=== PATIENT | male | born 1990 | race Caucasian/White ===

== ENCOUNTER 2016-06-17 10:15 | Emergency (ER) | payer MEDICAID ==
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
[2016-06-17 11:49] VITALS: BP 126/83; PULSE 78; RESP 19; TEMP 98.4; O2SAT 96
== END 2016-06-17 11:44 | disposition home or self-care (01) ==
DX: S16.1XXA Strain of muscle, fascia and tendon at neck level, initial encounter (principal); S40.011A Contusion of right shoulder, initial encounter; F17.200 Nicotine dependence, unspecified, uncomplicated; V29.9XXA Motorcycle rider (driver) (passenger) injured in unspecified traffic accident, initial encounter; Y92.410 Unspecified street and highway as the place of occurrence of the external cause; Y93.55 Activity, bike riding

== ENCOUNTER 2016-06-22 09:49 | Inpatient (IN) | payer MEDICAID ==
[2016-06-22 10:28] LABS: % IMMATURE GRANULYOCYTES 0.8 % (0.0-1.1); ABSOLUTE IMMATURE GRANULOCYTES 0.05 10^3/uL (0.00-0.10); ADD DIFF? NO; ADD MORPH? NO; ADD SCAN? NO; ATYPICAL LYMPHOCYTE FLAG 20 (0-99); FRAGMENT RBC FLAG 0 (0-99); HEMATOCRIT 48.8 % (40.0-51.0); HEMOGLOBIN 17.2 g/dL (13.7-17.5); LEFT SHIFT FLG 0 (0-99); LIPEMIA HEMOLYSIS FLAG 90 (0-99); MEAN CELL HEMOGLOBIN 31.3 pg (27.9-34.1); MEAN CELL HEMOGLOBIN CONCENTR. 35.2 g/dL (32.4-36.7); MEAN CELL VOLUME 88.7 fL (81.5-99.8); PLATELET CLUMPS FLAG 0 (0-99); PLATELET COUNT 298 10^3/uL (150-400); RED CELL DISTRIBUTION WIDTH 12.2 % (11.5-15.2)
[2016-06-22 10:52] LABS: ANION GAP 14 mEq/L (8-16); CALCIUM 10.3 mg/dL (8.5-10.4); CARBON DIOXIDE 21 mEq/l (22-31); CHLORIDE 106 mEq/L (97-110); CREATININE 0.7 mg/dL (0.7-1.3); ETHANOL SERUM < 10 mg/dL (0-10); GLOMERULAR FILTRATION RATE > 60; GLUCOSE 96 mg/dL (70-100); POTASSIUM 4.5 mEq/L (3.5-5.2); SALICYLATE < 1.0 mg/dL (2.0-20.0); SODIUM 141 mEq/L (134-144)
[2016-06-22] MEDS ORDERED: HYDROCODONE/APAP 5/325 TAB PO ONE ×2 (11:14→20:41)
[2016-06-22] MEDS ORDERED: IBUPROFEN 600 MG TAB PO ONE ×3 (11:14→20:41)
--- NOTE | 2016-06-22 11:28 | EDPHY ---
H & P Stated Complaint: court ordered M1 - Personal History Current Tetanus/Diphtheria Vaccine: Unsure Current Tetanus Diphtheria and Acellular Pertussis (TDAP): Unsure - Medical/Surgical History Hx Asthma: No Hx Chronic Respiratory Disease: No Hx Diabetes: No Hx Cardiac Disease: No Hx Renal Disease: No Hx Cirrhosis: No Hx Alcoholism: No Hx HIV/AIDS: No Hx Splenectomy or Spleen Trauma: No Other PMH: PMH: bipolar, schizo affective, acid reflux. PSH: wisdom teeth removed - Social History Smoking Status: Current every day smoker HPI/ROS: Chief complaint: Court ordered mental health hold History of present illness: This is a 26-year-old male who presents to the emergency department on a court ordered mental health hold. According to the hold his mother asked for the hold to be placed as she felt he was gravely disabled and a danger to himself and others. On my evaluation patient states he knows his mother placed him on a hold but does not understand why. He does not believe he needs it at this time. He denies suicidal ideation. He denies homicidal ideation. He denies illness. He recently injured his clavicle and was evaluated in this emergency room and feels he is recovering well from it, although he still occasionally has pain at the site of injury. He is requesting some pain medication.. Review of systems: A 10 point review of systems was obtained and other than described above was negative (Pal Chand) - Physical Exam Exam: General Appearance: Alert, nontoxic. Eyes: Pupils equal and round no pallor or injection. ENT, Mouth: Mucous membranes moist. Respiratory: There are no retractions, lungs are clear to auscultation. Cardiovascular: Regular rate and rhythm. Gastrointestinal: Abdomen is soft and nontender, no masses, bowel sounds normal. Neurological: Alert. Strength and sensation intact and symmetrical. Ambulating well. Skin: Warm and dry, no rashes. Musculoskeletal: Head is normocephalic, atraumatic. Neck is supple nontender. Spine is nontender to palpation along its entire length. Right clavicle is nontender. Chest wall intact palpation. Extremities are symmetrical, full range of motion. Psychiatric: Patient is oriented X 3, there is no agitation. (Pal Chand) Constitutional: Initial Vital Signs Temperature (C) 36.8 C 06/22/16 09:49 Heart Rate 84 06/22/16 09:49 Respiratory Rate 19 06/22/16 09:49 Blood Pressure 158/82 H 06/22/16 09:49 O2 Sat (%) 94 06/22/16 09:49 O2 Delivery Mode Room Air Allergies/Adverse Reactions: No Known Allergies Allergy (Unverified 06/17/16 10:21) Home Medications: Medication Instructions Recorded NK [No Known Home Meds] 06/22/16 Medical Decision Making ED Course/Re-evaluation: Patient seen under the supervision of my secondary supervising physician Dr. Jenaro Lees. Patient presents to the emergency department on a court ordered mental health hold. Patient is evaluated by myself and cleared for psychiatric evaluation. This is pending at time of dictation. Care of patient turned over to my attending physician Dr. Lees at end of shift. (Pal Chand) This pt was seen by . Dexter appropriate for inpt disposition Transferred to . (Zahra Hutchins) - Data Points Laboratory Results: Laboratory Results 06/22/16 10:15 06/22/16 10:15 06/22/16 10:15 Sodium 141 mEq/L mEq/L (134-144) Potassium 4.5 mEq/L mEq/L (3.5-5.2) Chloride 106 mEq/L mEq/L (97-110) Carbon Dioxide 21 mEq/l L mEq/l (22-31) Anion Gap 14 mEq/L mEq/L (8-16) BUN 13 mg/dL mg/dL (7-23) Creatinine 0.7 mg/dL mg/dL (0.7-1.3) Estimated GFR > 60 Glucose 96 mg/dL mg/dL (70-100) Calcium 10.3 mg/dL mg/dL (8.5-10.4) Salicylates < 1.0 mg/dL L mg/dL (2.0-20.0) Acetaminophen < 10 mcg/mL L mcg/mL (10.0-30.0) Ethyl Alcohol < 10 mg/dL mg/dL (0-10) Medications Given: Discontinued Medications Hydrocodone Bitart/Acetaminophen ([place] 5/325) 1 tab PO EDNOW ONE Stop: 06/22/16 11:15 Last Admin: 06/22/16 11:51 Dose: 1 tab Hydrocodone Bitart/Acetaminophen ([place] 5/325) 1 tab PO EDNOW ONE Stop: 06/22/16 20:42 Last Admin: 06/22/16 20:41 Dose: 1 tab Ibuprofen (Motrin) 600 mg PO EDNOW ONE Stop: 06/22/16 11:15 Last Admin: 06/22/16 11:51 Dose: 600 mg Ibuprofen (Motrin) 600 mg PO EDNOW ONE Stop: 06/22/16 20:42 Last Admin: 06/22/16 20:41 Dose: 600 mg Departure - Departure Disposition: [facility] IP Clinical Impression: Suicidal ideation Condition: Fair Referrals: NONE *PRIMARY CARE P,. [Primary Care Provider] - As per Instructions
[2016-06-22] MEDS ORDERED: HYDROCODONE/APAP 5/325 TAB ONE (20:35)
[2016-06-23] MEDS ORDERED: MAG HYDROX/AL HYDROX/SIMETH 30 ML UDCUP PO PRN (00:01)
[2016-06-23] MEDS ORDERED: MAGNESIUM HYDROXIDE 30 ML UDCUP PO PRN (00:01)
[2016-06-23] MEDS ORDERED: NICOTINE POLACRILEX 2 MG GUM B PRN (00:01)
[2016-06-23] MEDS ORDERED: LORazepam 0.5 MG TAB PO PRN (00:01)
[2016-06-23] MEDS ORDERED: ACETAMINOPHEN 325 MG TAB PO PRN (00:02)
[2016-06-23 00:24] VITALS: RESP 14
[2016-06-23] MEDS ORDERED: LURASIDONE HCL 20 MG TAB PO ONE (11:30)
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
[2016-06-23] MEDS: IBUPROFEN 800 MG TAB PO PRN (19:16)
[2016-06-24] MEDS: IBUPROFEN 800 MG TAB PO PRN (09:04)
[2016-06-24] MEDS: LURASIDONE HCL 20 MG TAB PO SCH ×2 (11:25→12:04)
[2016-06-25] MEDS: IBUPROFEN 800 MG TAB PO PRN ×2 (04:00→10:10)
[2016-06-25 05:05] VITALS: BP 130/82; PULSE 93; TEMP 97.8; O2SAT 99
[2016-06-25] MEDS: LURASIDONE HCL 20 MG TAB PO SCH (07:58)
--- NOTE | 2016-06-25 08:10 | SOAPPROG ---
SOAP Progress Note Assessment/Plan: Assessment: Plan: 06/25/16 08:09 Remains elevated, delusional. Non-compliant with treatment. Will CCM, monitor. Subjective: LATE ENTRY FROM 06/24/16 Pt seen, discussed with staff. Reports feeling "totally normal and ready to go. " Pressured and insistant on reviewing his entire treatment hx. Insists he is not schizophrenic and "only needs weed." Refused Latuda this morning. Objective: Vital Signs Temp Pulse Resp BP Pulse Ox 36.6 C 93 14 130/82 H 99 06/25/16 05:04 06/25/16 05:04 06/25/16 05:04 06/25/16 05:04 06/25/16 05:04 MSE: Pressured, loud, though friendly. Affect is expansive. Mood is "great." TP tangential. TC reveals some paranoid thoughts. - Time Spent With Patient Time Spent With Patient: 25" - Pending Discharge Pending Discharge Within 24 Hours: No Pending Discharge Within 48 Hours: No ICD10 Worksheet Patient Problems: Problems Problem Status Onset Suicidal ideation Acute Alcohol abuse Acute Cervical strain Acute Contusion of right clavicle Acute Opiate abuse, episodic Acute Schizoaffective disorder Acute
--- NOTE | 2016-06-25 18:34 | BDS ---
REASON FOR ADMISSION: Patient is a 26-year-old male with a history of schizoaffective dis order, bipolar type. He presented from home due to increasing agitation and aggressive behaviors wi th his family after 5-6 months of being completely off psychotropic medications and using marijuana. Full description of the events preceding admission can be found in his admission history per Dr. Jaye Verduzco dated 06/23/2016. ADMITTING DIAGNOSES: Per Dr. Gifford: Schizoaffective disorder, bipolar type. Rule out schizoph alexey. Alcohol and opiate use disorder, severe. No medical problems. [place] V on admission was 20. ADMITTING PHYSICAL EXAMINATION: Performed by Dr. Hang Bruno revealed some neck pain. No other physical findings. ADMISSION LABORATORY: CBC is normal. Serum chemistries are normal. Urine drug screen is positive for opiates only. HOSPITAL COURSE: Patient was admitted to the behavioral health services inpatient unit on an M1 d. He was somewhat elevated, talkative, pressured, and appeared to be exhibiting some paranoid delu sions. His thought process was rambling and illogical, and his concentration was poor. He denies a ny thoughts of suicide, homicide or violence, but his collateral history indicated that he had been threatening toward his family, getting in their face and yelling, and placing them in a genuine fear of harm. His mother indicated that he was worried about catastrophic events and that there were se veral spiritual beings he communicated with on a regular basis in relation to this. He complained o f persistent luis angel vu feelings, and was worried that his house was going to blow up or that a tidal [place] was going to destroy everything. He currently lives at home and does not work. His hygiene has deteriorated, and he has to be repeatedly asked to shower. On my evaluation on 06/24/2016, the patient was pressured and intrusive, wanting to look at all of h is medical records. We had to refute the fact that he has mental illness. He states that he does n ot and that he only needs to smoke marijuana to be well. He refused Latuda, which was prescribed by Dr. Gifford on the morning of his first day of hospitalization, though after talking with me, agr eed to take it. On the second full day of hospitalization, we received notice that the patient was accepted to [facility], and he was informed of this. He had already been informed the day before that he was on the list, and stated that he did not want to go there, but wanted to be discharged to home. He became a ngry when he read my certification, stating that he was a danger to self and others and was resistan t to the transfer. He did not exhibit any aggressive behaviors while I was present. CONDITION ON DISCHARGE: Stable. He continues to have paranoid delusions though has been compliant with medication for 2 days. He has no physical issues, and there is no medical barrier to transport . DISCHARGE DIAGNOSES: Schizoaffective disorder, bipolar type, chronic with acute exacerbation. [place] and opiate use disorder, severe. DISCHARGE MEDICATIONS: Latuda 20 mg daily, lorazepam 0.5 mg 1 mg every 4 hours as needed for anxiet y. DISPOSITION: Patient is to go via ambulance to the [facility] at [facility]. Followup is with staff at [facility]. LEGAL STATUS: The patient was placed on a short-term certification on 06/25/2016. /[id number]/MODL
== END 2016-06-25 17:30 | DRG 885 ==
LOC: BBEH 23:30
PROVIDERS: ADMIT Psychiatry & Neurology Psychiatry; ATTEND Psychiatry & Neurology Psychiatry
DX: F25.0 Schizoaffective disorder, bipolar type (principal); F11.90 Opioid use, unspecified, uncomplicated; F17.210 Nicotine dependence, cigarettes, uncomplicated; K21.9 Gastro-esophageal reflux disease without esophagitis; M54.2 Cervicalgia; Z72.89 Other problems related to lifestyle
CPT/HCPCS: 80305; G0480

== ENCOUNTER 2017-01-08 13:33 | Emergency (ER) | payer MEDICAID ==
[2017-01-08 13:46] VITALS: TEMP 99.3
--- NOTE | 2017-01-08 13:49 | EDPHY ---
H & P Stated Complaint: ps Time Seen by Provider: 01/08/17 13:39 - Personal History Current Tetanus Diphtheria and Acellular Pertussis (TDAP): Unsure - Medical/Surgical History Hx Asthma: No Hx Chronic Respiratory Disease: No Hx Diabetes: No Hx Cardiac Disease: No Hx Renal Disease: No Hx Cirrhosis: No Hx Alcoholism: No Hx HIV/AIDS: No Hx Splenectomy or Spleen Trauma: No Other PMH: PMH: bipolar, schizo affective, acid reflux; clavical/neck muscular injury. PSH: wisdom teeth removed - Social History Smoking Status: Current every day smoker Constitutional: Initial Vital Signs Temperature (C) 37.4 C 01/08/17 13:44 Heart Rate 119 H 01/08/17 13:44 Respiratory Rate 16 01/08/17 13:44 Blood Pressure 151/79 H 01/08/17 13:44 O2 Sat (%) 92 01/08/17 13:44 O2 Delivery Mode Room Air Allergies/Adverse Reactions: No Known Allergies Allergy (Unverified 06/17/16 10:21) Home Medications: Medication Instructions Recorded LORazepam [Ativan (*)] 0.5 - 1 mg PO Q4HRS PRN #0 tab 06/25/16 Lurasidone HCl [Latuda] 20 mg PO DAILY@0800 #0 tab 06/25/16 Nicotine Polacrilex [Nicorette gum 2 mg B Q1HR PRN #0 gum 06/25/16 (*)] Medical Decision Making ED Course/Re-evaluation: CHIEF COMPLAINT: Psychiatric evaluation HISTORY OF PRESENT ILLNESS: Patient is intoxicated and his parents called the police and he was trying to get the police to shoot him. The police put him on an M1 hold because they believe he was trying to get killed by landscape [employer] internship. they feel like he has suicidal ideations. The patient denies suicide to me but he is quite intoxicated. I will have additional discussion with him when he is sober REVIEW OF SYSTEMS: A 10 point review of systems was performed and is negative with the exception of the elements mentioned in the history of present illness. PHYSICAL EXAM: General Appearance: Alert, well hydrated, appropriate, and non-toxic appearing. Head: Atraumatic without scalp tenderness or obvious injury Eyes: Pupils equal, round, reactive to light and accommodation, EOMI, no trauma , no injection. Ears: Clear bilaterally, no perforation, normal landmarks Nose: Atraumatic, no rhinorrhea, clear. Throat: There is no erythema or exudates, no lesions, normal tonsils, mucus membranes moist. Neck: Supple, 2+ carotid upstroke, nontender, no lymphadenopathy. Respiratory: No retractions, no distress, no wheezes, and no accessory muscle use. Lungs are clear to auscultation bilaterally. Cardiovascular: Regular rate and rhythm, no murmurs, rubs, or gallops. Bilateral carotid, radial, dorsalis pedis, and posterior tibial pulses intact. Good capillary refill all extremities. Gastrointestinal: Abdomen is soft, nontender, non-distended, no masses, no rebound, no guarding, no peritoneal signs. Musculoskeletal: Normal active ROM of all extremities, atraumatic. Neurological: Alert, appropriate, and interactive. The patient has normal DTRs and non-focal cranial nerves, motor, sensory, and cerebellar exam. Skin: No rashes, good turgor, no nodules on palpation. Past medical history: Alcoholism and depression Past surgical history: Noncontributory Family history: Noncontributory Social history: Single, lives at home, abuses alcohol, uses marijuana, denies other substance abuse. DIFFERENTIAL DIAGNOSIS: The differential diagnosis for the patient's depression included but was not limited to functional and major depression, situational depression, medication side effect, drugs, and alcohol abuse. MEDICAL DECISION MAKING: Patient is in no acute distress and is hemodynamically stable. He is intoxicated in any to speak to him again when he is sober. If he is still having suicidal ideations we will obtain psychiatric evaluation 2028: Patient is medically cleared for discharge. Reassessed patient and discussed return precautions; patient is comfortable with this plan. - Data Points Laboratory Results: Laboratory Results 01/08/17 13:42 01/08/17 13:42 01/08/17 01/08/17 01/08/17 13:42 13:42 13:42 WBC 9.05 10^3/uL 10^3/uL (3.80-9.50) RBC 5.63 10^6/uL 10^6/uL (4.40-6.38) Hgb 17.9 g/dL H g/dL (13.7-17.5) Hct 50.9 % % (40.0-51.0) MCV 90.4 fL fL (81.5-99.8) MCH 31.8 pg pg (27.9-34.1) MCHC 35.2 g/dL g/dL (32.4-36.7) RDW 12.7 % % (11.5-15.2) Plt Count 396 10^3/uL 10^3/uL (150-400) MPV 9.6 fL fL (8.7-11.7) Neut % (Auto) 44.0 % % (39.3-74.2) Lymph % (Auto) 45.9 % H % (15.0-45.0) [place] % (Auto) 7.8 % % (4.5-13.0) Eos % (Auto) 1.0 % % (0.6-7.6) Baso % (Auto) 0.7 % % (0.3-1.7) Nucleat RBC Rel Count 0.0 % % (0.0-0.2) Absolute Neuts (auto) 3.99 10^3/uL 10^3/uL (1.70-6.50) Absolute Lymphs (auto) 4.15 10^3/uL H 10^3/uL (1.00-3.00) Absolute Monos (auto) 0.71 10^3/uL 10^3/uL (0.30-0.80) Absolute Eos (auto) 0.09 10^3/uL 10^3/uL (0.03-0.40) Absolute Basos (auto) 0.06 10^3/uL 10^3/uL (0.02-0.10) Absolute Nucleated RBC 0.00 10^3/uL 10^3/uL (0-0.01) Immature Gran % 0.6 % % (0.0-1.1) Immature Gran # 0.05 10^3/uL 10^3/uL (0.00-0.10) Sodium 146 mEq/L H mEq/L (134-144) Potassium 3.9 mEq/L mEq/L (3.5-5.2) Chloride 106 mEq/L mEq/L (97-110) Carbon Dioxide 14 mEq/l L mEq/l (22-31) Anion Gap 26 mEq/L H mEq/L (8-16) BUN 7 mg/dL mg/dL (7-23) Creatinine 1.1 mg/dL mg/dL (0.7-1.3) Estimated GFR > 60 Glucose 117 mg/dL H mg/dL (70-100) Calcium 10.1 mg/dL mg/dL (8.5-10.4) Salicylates < 1.0 mg/dL L mg/dL (2.0-20.0) Urine Opiates Screen NEGATIVE (NEGATIVE) Acetaminophen < 10 mcg/mL L mcg/mL (10-30) Urine Barbiturates NEGATIVE (NEGATIVE) Ur Phencyclidine Scrn NEGATIVE (NEGATIVE) Ur Amphetamine Screen NEGATIVE (NEGATIVE) U Benzodiazepines Scrn NEGATIVE (NEGATIVE) Urine Cocaine Screen NEGATIVE (NEGATIVE) U Marijuana (THC) Screen NEGATIVE (NEGATIVE) Ethyl Alcohol 266 mg/dL H mg/dL (0-10) Departure - Departure Disposition: Home, Routine, Self-Care Clinical Impression: Alcohol intoxication Qualifiers: Complication of substance-induced condition: uncomplicated Qualified Code(s): F10.920 - Alcohol use, unspecified with intoxication, uncomplicated Condition: Good Instructions: Alcohol Intoxication (ED) Additional Instructions: You have been medically cleared for discharge following your alcohol intoxication. Follow-up with your primary doctor within 72 hours if your symptoms do not improve. Return to the Emergency Department for fever, chest pain, shortness of breath, increasing pain or other worsening of condition. Referrals: [facility] Hours [Outside] - As per Instructions Report Scribed for: Jenaro Lees Report Scribed by: Christel Pinto Date of Report: 01/08/17 Time of Report: 20:30
[2017-01-08 14:23] LABS: % IMMATURE GRANULYOCYTES 0.6 % (0.0-1.1); ABSOLUTE IMMATURE GRANULOCYTES 0.05 10^3/uL (0.00-0.10); ADD DIFF? NO; ADD MORPH? NO; ADD SCAN? NO; ATYPICAL LYMPHOCYTE FLAG 10 (0-99); FRAGMENT RBC FLAG 0 (0-99); HEMATOCRIT 50.9 % (40.0-51.0); HEMOGLOBIN 17.9 g/dL (13.7-17.5); LEFT SHIFT FLG 0 (0-99); LIPEMIA HEMOLYSIS FLAG 90 (0-99); MEAN CELL HEMOGLOBIN 31.8 pg (27.9-34.1); MEAN CELL HEMOGLOBIN CONCENTR. 35.2 g/dL (32.4-36.7); MEAN CELL VOLUME 90.4 fL (81.5-99.8); MEAN PLATELET VOLUME 9.6 fL (8.7-11.7); PLATELET CLUMPS FLAG 10 (0-99); PLATELET COUNT 396 10^3/uL (150-400); RED BLOOD CELL COUNT 5.63 10^6/uL (4.40-6.38); RED CELL DISTRIBUTION WIDTH 12.7 % (11.5-15.2)
[2017-01-08 14:32] LABS: ANION GAP 26 mEq/L (8-16); CALCIUM 10.1 mg/dL (8.5-10.4); CARBON DIOXIDE 14 mEq/l (22-31); CHLORIDE 106 mEq/L (97-110); CREATININE 1.1 mg/dL (0.7-1.3); ETHANOL SERUM 266 mg/dL (0-10); GLOMERULAR FILTRATION RATE > 60; GLUCOSE 117 mg/dL (70-100); POTASSIUM 3.9 mEq/L (3.5-5.2); SALICYLATE < 1.0 mg/dL (2.0-20.0); SODIUM 146 mEq/L (134-144)
[2017-01-08 18:16] VITALS: RESP 18; O2SAT 95
[2017-01-08 20:12] VITALS: BP 158/74; PULSE 88
== END 2017-01-08 20:50 | disposition home or self-care (01) ==
LOC: EDUNIT#
DX: F10.920 Alcohol use, unspecified with intoxication, uncomplicated (principal); F17.200 Nicotine dependence, unspecified, uncomplicated
CPT/HCPCS: 80305; G0480